=== PATIENT | male | born 1960 | race Two or more races ===

== ENCOUNTER 2020-10-19 19:31 | Emergency (ER) | payer OTHER, SELFPAY ==
[~2020-10-19] VITALS: Ht 172.7 cm; Wt 90.7 kg
[2020-10-19] MEDS ORDERED: METF-442 PO (19:49)
[2020-10-19] MEDS ORDERED: ACETAMINOPHEN ES 500 MG TABLET ONE (20:10)
[2020-10-19] MEDS ORDERED: ACETAMINOPHEN 325 MG TABLET PO ONE (20:15)
--- NOTE | 2020-10-19 20:23 | NUR ---
[facility]GR[facility] SENT TO LAB/CXR DONE,TYLENOL PO ADMINISTERED. PT AWAITING RESULTS. SURGICAL FACE MASK ON.
[2020-10-19] MEDS ORDERED: DEXAMETHASONE 4 MG TABLET PO ONE (21:30)
[2020-10-19] MEDS ORDERED: AZITHROMYCIN 250 MG TABLET PO ONE (21:30)
[2020-10-19] MEDS ORDERED: AZITHROMYCIN 250 MG TABLET ONE (21:35)
[2020-10-19] MEDS ORDERED: DEXAMETHASONE 4 MG TABLET ONE (21:36)
[2020-10-19] MEDS ORDERED: DEXAMETHASONE 1 MG TABLET ONE (21:36)
--- NOTE | 2020-10-19 21:38 | NUR ---
MSE COMPLETED, MEDS ADMINISTERED, PT D/C'D HOME, ACI/RX X2 GIVEN. PT AMBULATED W/O DIFF/TOOK QALL BELONGINGS
[2020-10-19 21:39] VITALS: BP 114/84
== END 2020-10-19 21:40 | disposition home or self-care (01) ==
LOC: ER 19:31
DX: U07.1 COVID-19 (principal); J12.89 Other viral pneumonia; Z89.422 Acquired absence of other left toe(s); E11.9 Type 2 diabetes mellitus without complications; Z79.84 Long term (current) use of oral hypoglycemic drugs
CPT/HCPCS: 71045; 87426; 99284; J8540 ×2; U0003; A4663; A9150; Q0144